=== PATIENT | female | born 2000 ===

== ENCOUNTER → 2020-02-26 | Outpatient (CLI) | payer SELFPAY | LOC: ZCOL.LAB 17:36 | DX: Z20.828 Contact with and (suspected) exposure to other viral communicable diseases (principal) ==

== ENCOUNTER → 2020-03-12 | Outpatient (REF) | payer SELFPAY | LOC: ZCOL.LAB 07:59 | DX: Z20.828 Contact with and (suspected) exposure to other viral communicable diseases (principal) ==

== ENCOUNTER 2022-06-15 06:27 | Emergency (ER) | payer SELFPAY ==
[~2022-06-15] VITALS: Ht 167.6 cm; Wt 64.1 kg
[~2022-06-15 06:27] MED LIST: FLEXERIL 1010 MG/TAB PO; MEDROL 4MG DOSPA4 MG PO
[2022-06-15 06:47] VITALS: TEMP 102.4
[2022-06-15 07:13] LABS: COLLECTION METHOD CLEAN CATCH
[2022-06-15 07:23] LABS: BASO % 0.4 % (0.0-2.0); GRAN # 6.3 K/mm3 (1.4-6.5); GRAN % 86.4 % (42.2-75.2); HEMATOCRIT 39.2 % (37.0-47.0); HEMOGLOBIN 13.1 g/dl (12.5-16.0); LYMPH # 0.5 K/mm3 (1.2-3.4); LYMPH % 6.3 % (20.0-51.0); MEAN CELL VOLUME 89 fl (80.0-100.0); MEAN CORPUSCULAR HEMOGLOBIN 30 pg (27-31); MEAN CORPUSCULAR HGB CONC 33 g/dl (33.0-37.0); MEAN PLATELET VOLUME 10.2 fl (7.4-10.4); MONO # 0.5 K/mm3 (0.1-0.6); MONO % 6.4 % (1.7-9.3); PLATELET COUNT 231 K/mm3 (130-400); RED BLOOD COUNT 4.41 M/mm3 (4.10-5.30); REDCELL DISTRIBUTION WIDTH-CV 13.3 % (11.5-14.5)
[2022-06-15 07:27] LABS: ALBUMIN 4.5 gm/dL (3.5-5.0); BILIRUBIN,TOTAL 0.6 mg/dL (0.2-1.2); CALCIUM 9.7 mg/dL (8.4-10.2); CREATININE, serum 0.79 mg/dL (0.57-1.11); POTASSIUM 3.3 mmol/L (3.5-4.5)
[2022-06-15 07:40] LABS: MUCOUS Present (NOT PRESENT); URINE BACTERIA None Seen /hpf (NONE SEEN); URINE RBC 0-2 /hpf (0-2)
[2022-06-15 07:41] LABS: URINE APPEARANCE Clear (CLEAR/HAZY); URINE COLOR Yellow (YELLOW); URINE PROTEIN(semi-quant) TRACE (NEGATIVE)
[2022-06-15 07:42] LABS: URINE BLOOD Negative (NEGATIVE); URINE GLUCOSE Negative (NEGATIVE); URINE KETONE 4+ (NEGATIVE); URINE NITRATE Negative (NEGATIVE); URINE UROBILINOGEN 0.2 E.U/dL (0.2-1.0)
[2022-06-15 08:39] VITALS: BP 100/68; PULSE 98
== END 2022-06-15 09:00 | disposition home or self-care (01) ==
LOC: COL.ER 06:27
PROVIDERS: Personal Emergency Response Attendant
DX: U07.1 COVID-19 (principal); E87.6 Hypokalemia; R50.9 Fever, unspecified; R05.9 Cough, unspecified; R06.02 Shortness of breath; R11.10 Vomiting, unspecified; Z28.311 Partially vaccinated for COVID-19
CPT/HCPCS: J7030